=== PATIENT | female | born 1975 | race Caucasian/White ===

== ENCOUNTER 2017-01-25 12:52 | Emergency (ER) | payer BC ==
--- NOTE | 2017-01-25 13:29 | ED Physician Documentation ---
Chest Pain - HISTORIAN Historian: patient - HPI Chief Complaint: Chest Pain Additional Information: lt upper ant chest pain onset 1w ago fairly continuous upper lt ant cp rad to lt shoulder and scapular area denies sob diaphoresis and pain is worse w/deep breath. has not had any cardiac problems but rampant in family Timing: gradual onset, still present (rates 3-4/10) Last known Well Date: 01/19/17 Last Known Well Time: 07:30 Severity: mild, moderate Quality: pressure, tightness. denies: sharp Chest Pain Signs/Symptoms: denies: nausea, vomiting, diaphoresis, cool extremities, dizziness, dyspnea Worsened By: nothing Relieved By: nothing - ROS CONST: no problems MS/LYMPH: none. denies: neck pain, calf pain, ankle swelling, back pain GI/: none EYES/ENT: none SKIN/ENDO: none NEURO/PSYCH: none - PAST HX [place] risk factors: no pertinent history Neuro deficit: none GI disease: none Lung disease: none Surgeries/Procedures: none Allergies/Adverse Reactions: Allergies Allergy/AdvReac Type Severity Reaction Status Date / Time No Known Allergies Allergy Verified 12/09/15 13:59 Home Medications: Ambulatory Orders Medication Instructions Recorded Ketorolac Tromethamine [Toradol] 10 mg PO QID PRN #20 tablet 12/09/15 Levofloxacin [Levaquin] 500 mg PO DAILY #7 tablet 12/09/15 - SOCIAL HX Smoking History: quit greater than 1 year Alcohol Use: none Drug Use: none - FAMILY HX Family HX: CAD under 55, CAD over 55 - VITAL SIGNS Vital Signs: Vital Signs Temp Pulse Resp BP Pulse Ox 118/72 12/09/15 16:05 - REVIEWED ASSESSMENTS Nursing Assessment Reviewed: Yes Vitals Reviewed: Yes ED Results Lab/Radiology - Radiology Radiology Impressions: cxr=wnl - Orders Orders: ED Orders Category Date Time Status Continuous EKG monitoring Q30M Care 01/25/17 13:22 Ordered Continuous Pulse Oximetry Q30M Care 01/25/17 13:[address] IV Lock 1T Care 01/25/17 13:25 Ordered CHEST 1 VIEW [RAD] Stat Exams 01/25/17 13:22 Ordered CBC/PLATELET/DIFF Routine Lab 01/25/17 13:22 Ordered CMP Routine Lab 01/25/17 13:22 Ordered TROPONIN I (cTnI) Stat Lab 01/25/17 13:22 Ordered Aspirin Med 01/25/17 13:22 Once 324 mg PO NOW ONE Oxygen Daily Oxygen 01/25/17 13:30 Ordered EKG WITH COMPARISON Stat Ther 01/25/17 13:22 Ordered Chest Pain Physical Exam - EXAM General Appearance: mild distress. No: anxious, lethargic, hyperventilating EENT: eye inspection normal Neck: nml inspection, no carotid bruit Respiratory: no resp. distress, chest non-tender, nml breath sounds CVS: reg. rate & rhythm Abdomen: soft, non-tender Skin: warm/dry, normal color. No: cyanosis, diaphoresis, jaundice Extremities: non-tender, normal range of motion Neuro: oriented X3, motor nml, sensation nml, mood/affect nml Discharge Clincal Impression: atypical chest pain Referrals: Primary Doctor,Elizabeth [Primary Care Provider] - 2 Days Comments: home IBU 600 tid Condition: Good Disposition: 01 HOME, SELF-CARE Decision to Admit: NO Decision Time: 15:00
[2017-01-25 13:33] LABS: BASOPHILS % 0.6 (0.0-1.5); EOSINOPHILS % 1.7 % (0.0-6.8); MEAN CORPUSCULAR HEMOGLOBIN 31.3 pg (28.0-34.0); MEAN CORPUSCULAR VOLUME 90.6 fl (80.0-100.0); MONOCYTES % 4.4 % (0.0-11.0); NEUTROPHILS # 4.7 # k/uL (1.4-7.7)
[2017-01-25] MEDS: ASPIRIN 81 MG CHEW TAB PO ONE (13:40)
[2017-01-25 13:47] LABS: eGFR (African) > 60; eGFR (Non-African) > 60
--- NOTE | 2017-01-25 13:48 | Diagnostic Imaging Report ---
АНДРЕЙ ALMONTE [facility] [id number] [facility] [address] [address] Report Submission Date: Jan 25, 2017 1:46:34 PM DROP COUNT ASSOCIATE Patient Study Name: PAKO ARNOLD Date: Jan 25, 2017 1:33:54 PM DROP COUNT ASSOCIATE Modality Type: CR Gender: F Description: CHEST : 73 Institution: [facility] Physician: АНДРЕЙ ALMONTE Examination: Portable chest History: Chest discomfort Comparison exam: None available Findings: Single view of the chest demonstrates a normal cardiac and mediastinal silhouette. Mild lordotic positioning. Lung hayden without focal infiltrate. No effusion. Osseous structures are appropriate for age. Impression: No acute pulmonary process. Electronically signed on Jan 25, 2017 1:46:34 PM DROP COUNT ASSOCIATE by: Manuel LANDEROS
[2017-01-25 15:11] VITALS: BP 98/65
== END 2017-01-25 15:09 | disposition home or self-care (01) ==
LOC: ED 12:52
DX: R07.89 Other chest pain (principal)
CPT/HCPCS: 71010; 80053; 84484; 85025; 99283; S1016